=== PATIENT | female | born 1945 | race Caucasian/White ===

== ENCOUNTER 2021-04-30 09:42 | Emergency (ER) | payer MEDICARE ==
[~2021-04-30] VITALS: Ht 162.6 cm; Wt 74.8 kg
[2021-04-30] MEDS ORDERED: ATENOLOL-CHLOR1 EAC1 PO (14:25)
[2021-04-30] MEDS ORDERED: LEVOTHYROXINE25 MCG PO (14:26)
[2021-04-30] MEDS ORDERED: GLIPIZIDE-METF1 EAC2 PO (14:26)
[2021-04-30] MEDS ORDERED: SIMVASTATIN40 MG (14:26)
[2021-04-30] MEDS ORDERED: PREDNISONE20 MG PO (14:30)
[2021-04-30] MEDS ORDERED: AUGMENTIN 875-1 EACH PO (14:30)
[2021-04-30] MEDS ORDERED: GUAIFENESIN-CO118 M1 PO (14:30)
== END 2021-04-30 15:45 | disposition home or self-care (01) ==
LOC: ED 09:42
DX: J20.9 Acute bronchitis, unspecified (principal); E11.9 Type 2 diabetes mellitus without complications; I10 Essential (primary) hypertension; Z79.899 Other long term (current) drug therapy; Z20.822 Contact with and (suspected) exposure to COVID-19
CPT/HCPCS: 71045; 80053; 81001; 85025; 96374; 99283-25; C9803; J0696; J7512; U0003